=== PATIENT | female | born 1940 | race Hispanic/Latino ===

== ENCOUNTER 2017-11-30 11:04 | Outpatient (CLI) | payer MEDICARE ==
--- NOTE | 2017-11-30 14:49 | XRay Report ---
XRAY RIGHT SHOULDER THREE VIEWS: 11/30/17 11:04:00 CLINICAL: Right shoulder pain. FINDINGS: Normal glenohumeral alignment. Mild glenohumeral joint osteoarthritis. Normal AC joint. No fracture or dislocation. No bone lesion. Normal soft tissues. IMPRESSION: Mild osteoarthritis.
== END 2017-11-30 11:05 | disposition home or self-care (01) ==
LOC: SPVIMAG 11:04
PROVIDERS: ATTEND Orthopaedic Surgery Sports Medicine
DX: M19.011 Primary osteoarthritis, right shoulder (principal)